=== PATIENT | female | born 1960 | race Caucasian/White ===

== ENCOUNTER → 2023-08-08 14:55 | Outpatient (REF) | payer BC, SELFPAY | LOC: HWWDC 14:55 | PROVIDERS: ATTENDING PHYSICIAN Nurse Practitioner Adult Health | DX: Z12.31 Encounter for screening mammogram for malignant neoplasm of breast (principal) | CPT/HCPCS: 77063; 77067 ==

== ENCOUNTER → 2024-04-29 16:52 | Outpatient (REF) | payer BC, SELFPAY | LOC: HWRAD 16:52 | PROVIDERS: ATTENDING PHYSICIAN Nurse Practitioner Adult Health | DX: J40 Bronchitis, not specified as acute or chronic (principal); R63.4 Abnormal weight loss; I49.3 Ventricular premature depolarization | CPT/HCPCS: 71046 ==

== ENCOUNTER → 2024-06-03 15:09 | Outpatient (REF) | payer BC, SELFPAY | LOC: HWRAD 15:09 | PROVIDERS: ATTENDING PHYSICIAN Nurse Practitioner Adult Health | DX: J18.9 Pneumonia, unspecified organism (principal) | CPT/HCPCS: 71046 ==

== ENCOUNTER → 2024-08-28 14:35 | Outpatient (REF) | payer BC, SELFPAY | LOC: HWWDC 14:35 | PROVIDERS: ATTENDING PHYSICIAN Nurse Practitioner Adult Health | DX: Z12.31 Encounter for screening mammogram for malignant neoplasm of breast (principal) | CPT/HCPCS: 77063; 77067 ==

== ENCOUNTER → 2025-01-07 13:15 | Outpatient (REF) | payer BC, SELFPAY | LOC: WDC 13:15 | PROVIDERS: ATTENDING PHYSICIAN Nurse Practitioner Adult Health | DX: R92.30 Dense breasts, unspecified (principal) | CPT/HCPCS: 76641 ==